=== PATIENT | male | born 1990 | race African-American/Black ===

== ENCOUNTER 2025-06-15 09:13 | Inpatient (IN) | payer MEDICAID, OTHER ==
[~2025-06-15] VITALS: Ht 185.4 cm; Wt 100.1 kg
--- NOTE | 2025-06-15 09:53 | ED.PDOC ---
GI ASSESSMENT HPI Comments HPI: 35 y/o M, with no prior medical history presents to the ED for CC of abdominal pain. Patient states, he has been experiencing symptoms of epigastric abdominal pain with associated urinary symptoms including "dark" colored urine and pain with urination x3days. Patient denies any back pain, flank pain, fever, chills, or penile discharge. No other symptoms or modifying factors are present at this time. REVIEW OF SYSTEMS: CONSTITUTIONAL: Denies acute: fever, diaphoresis, chills, HEAD: Denies acute: headache, photophobia Eyes: Denies acute: Double vision, vision loss, eye pain, eye discharge. EARS: Denies acute: tinnitus, hearing loss, ear discharge, ear pain, THROAT: Denies acute: sore throat, swelling, difficulty swallowing , pain with swallowing, change in voice. NECK: Denies acute: neck pain, neck swelling, stiff neck. HEART: Denies acute : chest pain, palpitations, LUNGS: Denies acute: SOB, wheezing, cough, hemoptysis ABDOMEN: Denies acute: Nausea, Vomiting, diarrhea, melena , hematemesis, hematochezia SKIN: Denies acute: rash, redness, lesions, itchiness. EXTREMITIES: Denies acute: calf pain, numbness, tingling, weakness, denies pain in extremity. Denies acute: Low back pain. Neuro: Denies acute: focal neurological deficit, motor or sensory focal neurological deficit, tremors, seizure like activity, confusion, dizziness, change in mental status, loss of bowel or bladder function, cauda equina like symptoms. : Denies acute: dysuria, hematuria, flank pain, increase in urinary frequency. PSYCH: Denies acute: hallucination, suicidal ideation, homicidal ideation. PHYSICAL EXAM: General: ----no----acute distress, awake and alert. Head: normocephalic, atraumatic. Neck: supple, trachea is midline, no swelling. Throat: Normal phonation. Eyes:, no erythema, no purulent discharge, no proptosis, no icterus. Heart: regular rate, regular rhythm, no significant murmur appreciated. Lungs: no apparent respiratory distress, Able to speak in full sentences. No wheezing, no rhonchi, no crackles. No stridors Clear to auscultation bilaterally. Abdomen: Epigastric tender to palpation, non distended, soft, no guarding, no rebound, + bowel sounds. Neuro: Awake, Alert, oriented to name, self, situation, follows commands GCS=15. Speech is normal. Skin: no petechia, no purpura, no cyanosis, non-pale, not jaundice. Lower extremities: --no - Pitting edema no deformity, no focal swelling, no calf TTP. Makes eye contact. moves all four extremities. Face: no apparent facial droop. Ambulating in the ED independently. ED COURSE: DISCLAIMER: This medical document was created using an electronic medical record system with voice recognition software and computerized dictation system. Although this document has been carefully reviewed, there might still be some phonetic and typographical errors. Occasional wrong-word or "sound-alike" substitutions may have occurred due to the inherent limitations of voice recognition software. These areas are purely typographical due to imperfections of the software programs and do not reflect any compromise in the patient's medical care. Please read the chart carefully and recognize, using context, where these substitutions have occurred. Chief Complaint: Abdominal Pain Time Seen by MD: 09:52 Reviewed Notes: Nurses Notes, Medications, Allergies Allergies: Coded Allergies: NO KNOWN ALLERGIES (Unverified , 06/15/25) Information Source: Patient Mode of Arrival: Ambulatory Timing: Days Duration: Since onset Prehospital treatment: None Vomitus: None Stool: Normal Severity: Moderate Recent Hx of: None Pain Location: Epigastric Modifying Factors: Nothing Associated sign and symptoms: Abdominal Pain Was a procedure done? Was a procedure done?: No GI differential Dx Differential Diagnosis: Gastritis/PUD, Gastroenteritis, UTI, Urolithiasis, Electrolyte Imbalance, Food Poisoning, Bacterial, Viral, Other (DDX include but not limited to diverticulitis, colitis, gastroenteritis, acute abdomen, SBO, enteritis, constipation, volvulus, appendicitis, Gallbladder disease, choledoco lithiasis, ascending cholangitis, pancreatitis, intraAbdominal mass/neoplasm, hepatitis, UTI, pylonephritis, kidney stone, aneurysm, dissection, Inflammatory bowel disease, gastroparesis, ischemic bowel.) X-Ray, Labs, Meds, VS Vital Signs Date Time Temp Pulse Resp B/P (MAP) Pulse Ox O2 Delivery O2 Flow Rate FiO2 06/15/25 12:15 100.0 84 15 103/67 (79) 97 100.0 06/15/25 11:40 100.8 87 20 112/69 (83) 97 100.8 06/15/25 11:40 87 06/15/25 11:40 100.8 06/15/25 11:00 87 20 97 Room Air* 0 21 06/15/25 10:40 103.3 06/15/25 10:34 97 Room Air* 0 21 06/15/25 10:28 103.3 106 17 123/76 (92) 97 103.3 06/15/25 09:14 100.0 110 18 138/72 95 100.0 Lab Test 06/15/25 11:15 06/15/25 10:08 Range/Units White Blood Count 19.4 H 23.8 H 4.4-10.8 10^3/uL Red Blood Count 4.33 L 5.10 4.5-5.90 10^6/uL Hemoglobin 13.0 L 15.1 13.5-17.5 g/dL Hematocrit 38.1 #L 45.3 41.0-53.0 % Mean Corpuscular Volume 88.0 88.8 80.0-100.0 fL Mean Corpuscular Hemoglobin 30.0 29.7 28.0-32.0 pg Mean Corpuscular Hemoglobin Concent 34.1 33.4 32.0-36.0 g/dL Red Cell Distribution Width 11.5 L 11.9 11.8-14.3 % Platelet Count 273 258 140-450 10^3/uL Mean Platelet Volume 7.6 7.5 6.9-10.8 fL Neutrophils (%) (Auto) 90.4 H 90.9 H 37.0-80.0 % Lymphocytes (%) (Auto) 3.9 L 3.9 L 10.0-50.0 % Monocytes (%) (Auto) 5.4 4.8 0.0-12.0 % Eosinophils (%) (Auto) 0.0 0.0 0.0-7.0 % Basophils (%) (Auto) 0.3 0.4 0.0-2.0 % Neutrophils # (Auto) 17.5 H 21.7 H 1.6-8.6 10 ^3/uL Lymphocytes # (Auto) 0.8 0.9 0.4-5.4 10 ^3/uL Monocytes # (Auto) 1.1 1.1 0-1.3 10 ^3/uL Eosinophils # (Auto) 0 0 0-0.8 10 ^3/uL Basophils # (Auto) 0.1 0.1 0-0.2 10 ^3/uL Nucleated Red Blood Cells 0.0 0.1 % Prothrombin Time 14.5 H 9.3-11.8 sec Prothrombin Time INR 1.42 H 0.9-1.15 Activated Partial Thromboplast Time 33.0 24.5-34.5 SEC Sodium Level 140 141 136-145 mmol/L Potassium Level 3.2 L 3.5 3.5-5.1 mmol/L Chloride Level 106 102 98-107 mmol/L Carbon Dioxide Level 22 24 20-31 mmol/L Anion Gap 12 15 5-15 Blood Urea Nitrogen 6 L 8 L 9-23 mg/dL Creatinine 0.96 1.14 0.700-1.30 mg/dL Glomerular Filtration Rate Calc 104 85 >90 mL/min BUN/Creatinine Ratio 6.3 L 7.0 L 10.0-20.0 Serum Glucose 112 H 114 H 74-106 mg/dL Calcium Level 8.8 9.7 8.7-10.4 mg/dL Total Bilirubin 2.4 H 2.8 H 0.2-1.0 mg/dL Aspartate Amino Transferase (AST) 20 25 13-40 U/L Alanine Aminotransferase (ALT) 16 22 7-40 U/L Alkaline Phosphatase 79 96 46-116 U/L Total Protein 7.4 8.2 5.7-8.2 g/dL Albumin 4.4 5.0 H 3.2-4.8 g/dL Platelet Estimate Adequate Clumped Platelets Few Red Blood Cell Morphology Normal Lactic Acid Level 2.3 *H 0.4-2.0 mmol/L Troponin I High Sensitivity < 3 L </=54 ng/L Lipase 28 12-53 U/L Current Medications Medications (Trade) Dose Ordered Sig/Velasquez Route Start Time Stop Time Status Last Admin Sodium Chloride 1,000 ml @ 1,000 mls/hr Q1H ONCE IV 06/15/25 09:45 06/15/25 10:44 DC 06/15/25 10:40 Ondansetron HCl (Zofran) 8 mg ONCE ONCE IV 06/15/25 09:45 06/15/25 09:46 DC 06/15/25 10:38 Acetaminophen (Tylenol Tablet) 650 mg ONCE ONCE PO 06/15/25 10:45 06/15/25 10:46 DC 06/15/25 10:40 Cefepime HCl 50 ml @ 12.5 mls/hr ONCE ONCE IV 06/15/25 11:45 06/15/25 15:44 DC 06/15/25 12:00 Lactated Ringer's 1,400 ml @ 1,000 mls/hr Q1H24M ONCE IV 06/15/25 11:30 06/15/25 12:55 DC 06/15/25 11:29 [place] [id number] Ph: [phone] DIAGNOSTIC IMAGING Diagnostic Imaging Report : [id number] Signed PATIENT: NICHOLE RAMOS JRACCT: [id number] UNIT: [id number] : 1990 LOC: ER ROOM / BED: / AGE / SEX: 35 / M ADM STATUS: REG ER SERVICE [id number] ORDERING PHYSICIAN: LIZZETTE CORDON DO PROCEDURE(s): ABPL - CT AB PEL WO CON-NO ORAL OR IV REASON: ABD PAIN N/V/D ORDER NUMBER(s): [id number], ACCESSION NUMBER(s): [id number] Exam: CT CT AB PEL WO CON-NO ORAL OR IV History: ABD PAIN N/V/D Comparison Study: None Technique: Multidetector spiral CT of the abdomen and pelvis was performed from lung bases to pubic symphysis. Imaging was performed without intravenous contra st. Coronal and sagittal multiplanar reformats were obtained from the axial data set by the technologist. Radiation Dose : 1. Abdomen/Pelvis: CTDIvol 14.13 mGy, DLP 723.4 mGy*cm. Findings: Evaluation of vasculature and solid organs is limited due to lack of intravenous contrast use. Lung Bases: Lung bases are clear. Visualized portions of the heart and pericardium are unremarkable. Liver: The liver is normal in size. No focal lesions. Gallbladder and Biliary Tree: Somewhat dense material in the gallbladder lumen may represent sludge versus small stones. No intrahepatic or extrahepatic biliary ductal dilatation. Spleen: Unremarkable Pancreas: The pancreas is grossly unremarkable. Adrenal Glands: Unremarkable Kidneys: Kidneys are unremarkable without calculi or hydronephrosis. GI tract: The stomach is grossly normal in appearance. No evidence of small bowel wall thickening or abnormal dilatation to suggest bowel obstruction. Liquid stool in the colon. The appendix is visualized and is normal. Peritoneum/mesentery/retroperitoneum. No evidence of free intraperitoneal air. No ascites. No evidence of suspicious lymphadenopathy. Abdominal Wall: Unremarkable. Vasculature: The visualized abdominal aorta is normal in size and caliber. Evaluation of abdominal and pelvic vessels is limited due to lack of intravenous contrast. Urinary Bladder: Grossly unremarkable for degree of distention. Pelvic Organs: Unremarkable Musculoskeletal: No aggressive focal bony lesions, acute fractures or dislocation. IMPRESSION: 1. Liquid stool in the colon suggesting diarrhea. No bowel obstruction. 2. Somewhat dense material in the gallbladder lumen may represent sludge versus small stones. ATED BY: RITA COE MD DICTATED DATE/TIME: 06/15/25 1015 SIGNED BY: RITA COE MD SIGNED DATE/TIME: 06/15/25 101 CC: Time of 1ST Reevaluation: 10:22 Reevaluation 1ST: Unchanged Patient Education/Counseling: Diagnosis, Treatment Family Education/Counseling: Other Comments MDM: patient presented with the above HPI.---abdominal pain/urinary symptom---workup was initiated. patient was found with the above mentioned diagnosis. the following medications were ordered: please refer to order lists of meds and tests obtained by myself Dr. Cordon. Patient ED course and VS have been stabilized. Patient has been reassessed in the ED and remained in a stable condition. Pertinent incidental findings were discussed with the patient and/or family. Patient/family voices understanding and is agreeable with plan. Patient has been observed in the ED adequate length of time to insure improvement/stability. Escalation of care considered: Consideration of escalation to observation or admission Sepsis bundle protocol was initiated with fluid resuscitation. Patient was ADMITTED to the medicine team for further evaluation and treatment of their presentation. All the reports of any imaging studies that were ordered by myself were reviewed by myself. SEPSIS Sepsis Screen Date sepsis recognized/suspect: Jun 15, 2025 Time Sepsis recognized/suspect: 0915 Recent Procedure: No On Antibiotic Therapy: No Respiratory Rate >20: No Heart Rate >90: Yes Temp<36 C (96.8 F) or >38.3 C: No SBP <90 or MAP <65 mmHG: No New Acute Mental Status Change: No Is the patient on CPAP, BIPAP,: No Physician Orders Bench Mechanic (06/15/25 ) Ct Ab Pel Wo Con-No Oral Or Iv (06/15/25 09:37) Clostridium Difficile Toxin (06/15/25 09:37) Ova & Parasite Exam (06/15/25 09:37) Stool Bacterial Culture (06/15/25 09:37) Stool Wbc (06/15/25 09:37) Chest Portable (06/15/25 10:52) Accucheck (06/15/25 10:52) Blood Culture (06/15/25 10:52) Notify Md If Map <65 Or Bp<90 (06/15/25 10:52) If Map<65 Start Vasopressor (06/15/25 10:52) Sepsis Reassesment After Fluid (06/15/25 11:52) Vital Signs Date Time Temp Pulse Resp B/P (MAP) Pulse Ox O2 Delivery O2 Flow Rate FiO2 06/15/25 12:15 100.0 84 15 103/67 (79) 97 100.0 06/15/25 11:40 100.8 87 20 112/69 (83) 97 100.8 06/15/25 11:40 87 06/15/25 11:40 100.8 06/15/25 11:00 87 20 97 Room Air* 0 21 06/15/25 10:40 103.3 06/15/25 10:34 97 Room Air* 0 21 06/15/25 10:28 103.3 106 17 123/76 (92) 97 103.3 06/15/25 09:14 100.0 110 18 138/72 95 100.0 Laboratory Tests Test 06/15/25 10:08 06/15/25 11:15 Lactic Acid Level 2.3 mmol/L (0.4-2.0) *H White Blood Count 23.8 10^3/uL (4.4-10.8) H 19.4 10^3/uL (4.4-10.8) H Medications Medications Dose Ordered Sig/Velasquez Route Start Time Stop Time Status Last Admin Dose Admin Acetaminophen 650 mg ONCE ONCE PO 06/15/25 10:45 06/15/25 10:46 DC 06/15/25 10:40 Cefepime HCl 50 ml @ 12.5 mls/hr ONCE ONCE IV 06/15/25 11:45 06/15/25 15:44 DC 06/15/25 12:00 Lactated Ringer's 1,400 ml @ 1,000 mls/hr Q1H24M ONCE IV 06/15/25 11:30 06/15/25 12:55 DC 06/15/25 11:29 Ondansetron HCl 8 mg ONCE ONCE IV 06/15/25 09:45 06/15/25 09:46 DC 06/15/25 10:38 Sodium Chloride 1,000 ml @ 1,000 mls/hr Q1H ONCE IV 06/15/25 09:45 06/15/25 10:44 DC 06/15/25 10:40 Departure 1 Departure Time of Disposition: 18:11 Impression: Primary Impression: Sepsis Additional Impressions: UTI (urinary tract infection) Leukocytosis Elevated lactic acid level Abdominal pain Disposition: ADMITTED INPATIENT Admit to: [facility] Condition: Guarded Discharged With: Self Critical Care Note Critical Care Time?: No I personally scribed for LIZZETTE CORDON DO ([email or web address]) on 06/15/25 at 09:53. Electronically submitted by Molly Rubio ([email or web address]). I personally scribed for LIZZETTE CORDON DO ([email or web address]) on 06/15/25 at 11:16. Electronically submitted by Molly Rubio ([email or web address]). I personally scribed for LIZZETTE CORDON DO ([email or web address]) on 06/15/25 at 11:16. Elec tronically submitted by Molly Rubio ([email or web address]). I personally scribed for LIZZETTE CORDON DO ([email or web address]) on 06/15/25 at 11:17. Electronically submitted by Molly Rubio ([email or web address]). LIZZETTE CORDON DO Jun 15, 2025 09:53
--- NOTE | 2025-06-15 10:17 | DVH ---
Exam: CT CT AB PEL WO CON-NO ORAL OR IV History: ABD PAIN N/V/D Comparison Study: None Technique: Multidetector spiral CT of the abdomen and pelvis was performed from lung bases to pubic s ymphysis. Imaging was performed without intravenous contrast. Coronal and sagittal multiplanar reform ats were obtained from the axial data set by the technologist. Radiation Dose : 1. Abdomen/Pelvis: CTDIvol 14.13 mGy, DLP 723.4 mGy*cm. Findings: Evaluation of vasculature and solid organs is limited due to lack of intravenous contrast use. Lung Bases: Lung bases are clear. Visualized portions of the heart and pericardium are unremarkable. Liver: The liver is normal in size. No focal lesions. Gallbladder and Biliary Tree: Somewhat dense material in the gallbladder lumen may represent sludge v ersus small stones. No intrahepatic or extrahepatic biliary ductal dilatation. Spleen: Unremarkable Pancreas: The pancreas is grossly unremarkable. Adrenal Glands: Unremarkable Kidneys: Kidneys are unremarkable without calculi or hydronephrosis. GI tract: The stomach is grossly normal in appearance. No evidence of small bowel wall thickening or abnormal dilatation to suggest bowel obstruction. Liquid stool in the colon. The appendix is visualiz ed and is normal. Peritoneum/mesentery/retroperitoneum. No evidence of free intraperitoneal air. No ascites. No evidenc e of suspicious lymphadenopathy. Abdominal Wall: Unremarkable. Vasculature: The visualized abdominal aorta is normal in size and caliber. Evaluation of abdominal a nd pelvic vessels is limited due to lack of intravenous contrast. Urinary Bladder: Grossly unremarkable for degree of distention. Pelvic Organs: Unremarkable Musculoskeletal: No aggressive focal bony lesions, acute fractures or dislocation. IMPRESSION: 1. Liquid stool in the colon suggesting diarrhea. No bowel obstruction. 2. Somewhat dense material in the gallbladder lumen may represent sludge versus small stones.
[2025-06-15 10:37] LABS: Hematocrit 45.3 % (41.0-53.0); Hemoglobin 15.1 g/dL (13.5-17.5); Mean Corpuscular Hemoglobin 29.7 pg (28.0-32.0); Mean Corpuscular Volume 88.8 fL (80.0-100.0); Nucleated Red Blood Cells % 0.1 %
[2025-06-15] MEDS: ONDANSETRON HCL 4 MG/2 ML VIAL IV ONE (10:38)
[2025-06-15] MEDS: ACETAMINOPHEN 325 MG TAB PO ONE (10:40)
[2025-06-15] MEDS: SODIUM CHLORIDE 0.9% 1,000 ML IV ONE (10:40)
[2025-06-15 10:45] LABS: Alanine Aminotransferase 22 U/L (7-40); Alkaline Phosphatase 96 U/L (46-116); Anion Gap 15 (5-15); BUN/Creatinine Ratio 7.0 (10.0-20.0); Calcium 9.7 mg/dL (8.7-10.4); Carbon Dioxide 24 mmol/L (20-31); Chloride 102 mmol/L (98-107); Sodium 141 mmol/L (136-145)
[2025-06-15 10:46] LABS: Albumin 5.0 g/dL (3.2-4.8); Bilirubin, Total 2.8 mg/dL (0.2-1.0); Blood Urea Nitrogen 8 mg/dL (9-23); Glucose 114 mg/dL (74-106); Potassium 3.5 mmol/L (3.5-5.1); Total Protein 8.2 g/dL (5.7-8.2)
[2025-06-15 10:47] LABS: Lactic Acid w/Reflex 2.3 mmol/L (0.4-2.0)
[2025-06-15 10:50] LABS: RBC Morphology Normal
[2025-06-15 10:51] LABS: Lipase 28 U/L (12-53)
[2025-06-15 11:00] VITALS: PULSE 87; RESP 20; O2SAT 97
[2025-06-15] MEDS ORDERED: LACTATED RINGER'S 2,400 ML IV ONE (11:00)
[2025-06-15 11:51] LABS: Hematocrit 38.1 % (41.0-53.0); Hemoglobin 13.0 g/dL (13.5-17.5); Mean Corpuscular Hemoglobin 30.0 pg (28.0-32.0); Mean Corpuscular Volume 88.0 fL (80.0-100.0); Nucleated Red Blood Cells % 0.0 %
--- NOTE | 2025-06-15 11:53 | DVH ---
CHEST RADIOGRAPH Indication: SEPSIS Technique: Single frontal view of the chest was obtained Comparison: None FINDINGS: Lines and Tubes: None Lungs: No focal consolidation. Pleura: No effusion. No pneumothorax. Cardiomediastinal contours: Unremarkable Bones: No acute osseous abnormality. IMPRESSION: 1. No acute cardiopulmonary disease. HS:Y
[2025-06-15] MEDS: CEFEPIME 1GM/50ML 50 ML IV ONE (12:00)
[2025-06-15 12:08] LABS: Alanine Aminotransferase 16 U/L (7-40); Albumin 4.4 g/dL (3.2-4.8); Alkaline Phosphatase 79 U/L (46-116); Anion Gap 12 (5-15); BUN/Creatinine Ratio 6.3 (10.0-20.0); Calcium 8.8 mg/dL (8.7-10.4); Carbon Dioxide 22 mmol/L (20-31); Chloride 106 mmol/L (98-107); Sodium 140 mmol/L (136-145); Total Protein 7.4 g/dL (5.7-8.2)
[2025-06-15 12:09] LABS: Bilirubin, Total 2.4 mg/dL (0.2-1.0); Blood Urea Nitrogen 6 mg/dL (9-23); Glucose 112 mg/dL (74-106); Potassium 3.2 mmol/L (3.5-5.1)
[2025-06-15 12:27] LABS: INR 1.42 (0.9-1.15); Partial Thromboplastin Time 33.0 SEC (24.5-34.5); Prothrombin Time 14.5 sec (9.3-11.8)
--- NOTE | 2025-06-15 12:28 | DVHHP2 ---
History of Present Illness Reason for Visit: Abdominal pain with dysuria History of Present Illness Sahil Restrepo JR is a 35-year-old male with past medical history of Hodgkin's lymphoma diagnosed in 2012 on chemo at [facility] who reports to the ED with abdominal pain with shortness of breath, dark colored urine, and abdominal pain when voiding x4 days. Patient also reports that he has been having loose green stool for the last 3 days. Patient reports that he was feverish and had chills last night. He states he does not know what his temperature was because he did not take it. He reports that he ate boiled potatoes. Patient states that there are no triggering or alleviating factors. Patient's girlfriend Linda at bedside. Patient denies any recent trauma or injury, recent sick contacts, recent danae stion of spoiled food, recent travels, chest pain, or shortness of breath. Patient also reports that he quit drinking 3 months ago and was drinking occasionally. Past Medical History Hodgkin's lymphoma Past Surgical History: None Family History: Other (Mom with blood clot.) Smoke: No ALCOHOL: none (Quit) Drugs: None Lives: with Family Domestic Violence: Neg Review of Systems Respiratory: Shortness of breath Gastrointestinal: Abdominal Pain Genitourinary: Dysuria Allergies: Coded Allergies: NO KNOWN ALLERGIES (Unverified , 06/15/25) Exam Vital Signs Vital Signs Date Time Temp Pulse Resp B/P (MAP) Pulse Ox O2 Delivery O2 Flow Rate FiO2 06/15/25 11:40 100.8 87 20 112/69 (83) 97 100.8 06/15/25 11:00 Room Air* 0 21 General Appearance: Alert, Oriented X3, Cooperative, No acute distress HEENT: Atraumatic, PERRLA, EOMI, Mucous membr. moist/pink Respiratory: Normal air movement Cardiovascular: Normal S1, Normal S2 Abdominal: Normal bowel sounds, Soft Extremities: No clubbing, No cyanosis, No edema, Normal pulses Skin: No significant lesion Neuro: Normal speech, Strength at 5/5 X4 ext, Normal tone, Sensation intact Psych/Mental Status: Mental status NL, Mood NL Labs/Xrays Labs Test 06/15/25 11:15 06/15/25 10:08 Range/Units White Blood Count 19.4 H 4.4-10.8 10^3/uL Red Blood Count 4.33 L 4.5-5.90 10^6/uL Hemoglobin 13.0 L 13.5-17.5 g/dL Hematocrit 38.1 #L 41.0-53.0 % Mean Corpuscular Volume 88.0 80.0-100.0 fL Mean Corpuscular Hemoglobin 30.0 28.0-32.0 pg Mean Corpuscular Hemoglobin Concent 34.1 32.0-36.0 g/dL Red Cell Distribution Width 11.5 L 11.8-14.3 % Platelet Count 273 140-450 10^3/uL Mean Platelet Volume 7.6 6.9-10.8 fL Neutrophils (%) (Auto) 90.4 H 37.0-80.0 % Lymphocytes (%) (Auto) 3.9 L 10.0-50.0 % Monocytes (%) (Auto) 5.4 0.0-12.0 % Eosinophils (%) (Auto) 0.0 0.0-7.0 % Basophils (%) (Auto) 0.3 0.0-2.0 % Neutrophils # (Auto) 17.5 H 1.6-8.6 10 ^3/uL Lymphocytes # (Auto) 0.8 0.4-5.4 10 ^3/uL Monocytes # (Auto) 1.1 0-1.3 10 ^3/uL Eosinophils # (Auto) 0 0-0.8 10 ^3/uL Basophils # (Auto) 0.1 0-0.2 10 ^3/uL Nucleated Red Blood Cells 0.0 % Sodium Level 140 136-145 mmol/L Potassium Level 3.2 L 3.5-5.1 mmol/L Chloride Level 106 98-107 mmol/L Carbon Dioxide Level 22 20-31 mmol/L Anion Gap 12 5-15 Blood Urea Nitrogen 6 L 9-23 mg/dL Creatinine 0.96 0.700-1.30 mg/dL Glomerular Filtration Rate Calc 104 >90 mL/min BUN/Creatinine Ratio 6.3 L 10.0-20.0 Serum Glucose 112 H 74-106 mg/dL Calcium Level 8.8 8.7-10.4 mg/dL Total Bilirubin 2.4 H 0.2-1.0 mg/dL Aspartate Amino Transferase (AST) 20 13-40 U/L Alanine Aminotransferase (ALT) 16 7-40 U/L Alkaline Phosphatase 79 46-116 U/L Total Protein 7.4 5.7-8.2 g/dL Albumin 4.4 3.2-4.8 g/dL Platelet Estimate Adequate Clumped Platelets Few Red Blood Cell Morphology Normal Lactic Acid Level 2.3 *H 0.4-2.0 mmol/L Troponin I High Sensitivity < 3 L </=54 ng/L Lipase 28 12-53 U/L CHEST RADIOGRAPH Indication: SEPSIS Technique: Single frontal view of the chest was obtained Comparison: None FINDINGS: Lines and Tubes: None Lungs: No focal consolidation. Pleura: No effusion. No pneumothorax. Cardiomediastinal contours: Unremarkable Bones: No acute osseous abnormality. IMPRESSION: 1. No acute cardiopulmonary disease. Exam: CT CT AB PEL WO CON-NO ORAL OR IV History: ABD PAIN N/V/D Comparison Study: None Technique: Multidetector spiral CT of the abdomen and pelvis was performed from lung bases to pubic symphysis. Imaging was performed without intravenous contrast. Coronal and sagittal multiplanar reformats were obtained from the ax ial data set by the technologist. Radiation Dose : 1. Abdomen/Pelvis: CTDIvol 14.13 mGy, DLP 723.4 mGy*cm. Findings: Evaluation of vasculature and solid organs is limited due to lack of intravenous contrast use. Lung Bases: Lung bases are clear. Visualized portions of the heart and pericardium are unremarkable. Liver: The liver is normal in size. No focal lesions. Gallbladder and Biliary Tree: Somewhat dense material in the gallbladder lumen may represent sludge versus small stones. No intrahepatic or extrahepatic biliary ductal dilatation. Spleen: Unremarkable Pancreas: The pancreas is grossly unremarkable. Adrenal Glands: Unremarkable Kidneys: Kidneys are unremarkable without calculi or hydronephrosis. GI tract: The stomach is grossly normal in appearance. No evidence of small bowel wall thickening or abnormal dilatation to suggest bowel obstruction. Liquid stool in the colon. The appendix is visualized and is normal. Peritoneum/mesentery/retroperitoneum. No evidence of free intraperitoneal air. No ascites. No evidence of suspicious lymphadenopathy. Abdominal Wall: Unremarkable. Vasculature: The visualized abdominal aorta is normal in size and caliber. Evaluation of abdominal and pelvic vessels is limited due to lack of intravenous contrast. Urinary Bladder: Grossly unremarkable for degree of distention. Pelvic Organs: Unremarkable Musculoskeletal: No aggressive focal bony lesions, acute fractures or dislocation. IMPRESSION: 1. Liquid stool in the colon suggesting diarrhea. No bowel obstruction. 2. Somewhat dense material in the gallbladder lumen may represent sludge versus small stones. SEPSIS Sepsis Screen Date sepsis recognized/suspect: Jun 15, 2025 Time Sepsis recognized/suspect: 1053 Recent Procedure: No On Antibiotic Therapy: No Respiratory Rate >20: Yes Heart Rate >90: Yes Temp<36 C (96.8 F) or >38.3 C: Yes SBP <90 or MAP <65 mmHG: No New Acute Mental Status Change: No Is the patient on CPAP, BIPAP,: No Physician Orders Outcomes Manager (06/15/25 ) Urinalysis (06/15/25 09:37) Ct Ab Pel Wo Con-No Oral Or Iv (06/15/25 09:37) Clostridium Difficile Toxin (06/15/25 09:37) Ova & Parasite Exam (06/15/25 09:37) Stool Bacterial Culture (06/15/25 09:37) Stool Wbc (06/15/25 09:37) Lactic Acid W/ Reflex Order (06/15/25 10:32) PTPTT (06/15/25 10:52) Chest Portable (06/15/25 10:52) Accucheck (06/15/25 10:52) Blood Culture (06/15/25 10:52) Notify Md If Map <65 Or Bp<90 (06/15/25 10:52) If Map<65 Start Vasopressor (06/15/25 10:52) Sepsis Reassesment After Fluid (06/15/25 11:52) Cefepime 1gm/50ml (Maxipime 1gm/50ml) (06/15/25 11:45) Lactated Ringer's (06/15/25 11:30) Vital Signs Date Time Temp Pulse Resp B/P (MAP) Pulse Ox O2 Delivery O2 Flow Rate FiO2 06/15/25 11:40 100.8 87 20 112/69 (83) 97 100.8 06/15/25 11:40 100.8 06/15/25 11:00 87 20 97 Room Air* 0 21 06/15/25 10:40 103.3 06/15/25 10:34 97 Room Air* 0 21 06/15/25 10:28 103.3 106 17 123/76 (92) 97 103.3 06/15/25 09:14 100.0 110 18 138/72 95 100.0 Laboratory Tests Test 06/15/25 10:08 06/15/25 11:15 Lactic Acid Level 2.3 mmol/L (0.4-2.0) *H White Blood Count 23.8 10^3/uL (4.4-10.8) H 19.4 10^3/uL (4.4-10.8) H Medications Medications Dose Ordered Sig/Velasquez Route Start Time Stop Time Status Last Admin Dose Admin Acetaminophen 650 mg ONCE ONCE PO 06/15/25 10:45 06/15/25 10:46 DC 06/15/25 10:40 650 MG Cefepime HCl 50 ml @ 12.5 mls/hr ONCE ONCE IV 06/15/25 11:45 06/15/25 15:44 06/15/25 12:00 12.5 MLS/HR Lactated Ringer's 1,400 ml @ 1,000 mls/hr Q1H24M ONCE IV 06/15/25 11:30 06/15/25 12:53 06/15/25 11:29 1,000 MLS/HR Ondansetron HCl 8 mg ONCE ONCE IV 06/15/25 09:45 06/15/25 09:46 DC 06/15/25 10:38 8 MG Sodium Chloride 1,000 ml @ 1,000 mls/hr Q1H ONCE IV 06/15/25 09:45 06/15/25 10:44 DC 06/15/25 10:40 1,000 MLS/HR Assessment/Plan Assessment/Plan Assessment Intractable abdominal pain Lactic acidosis likely due to sepsis Pyrexia Hypokalemia Hyperbilirubinemia Intractable diarrhea UTI History of Hodgkin's lymphoma diagnosed in 2012 on chemo at [facility] History of alcohol use Plan Admit to [facility] IV antibiotics-Zosyn Cefepime given in ED LR 3.8 L given in ED NS 1 L given ED Antiemetics Pain management Antipyretics Blood cultures PT/PTT Lactic noted Stool WBC Ova and parasite C diff testing CT abdomen and pelvis noted UA Lipase Troponin noted UA UDS Urine culture Renal ultrasound ordered Diet No home medications reported DVT prophylaxis-SCDs PUD prophylaxis-PPIs Discussed plan of care with patient and nurse Counseled patient on continuance of cessation of alcohol use [id number] Preventive counseling healthy eating habits, physical activity, and regular checkups Plan discussed with: Patient Date of Service: Jun 15, 2025 Billing Provider: MICHELLE NEWMAN Common Visit Codes: [id number] INP/OBS CARE (HIGH) Secondary Visit Codes: [id number] COUNSELING IND MIHCELLE NEWMAN Jun 15, 2025 12:28
[2025-06-15] MEDS: PIPERACILLIN-TAZOB 3.375GM 100 ML IV SCH (12:30)
[2025-06-15] MEDS ORDERED: HYDROcodone-ACET 5/325MG TAB PO PRN (12:30)
[2025-06-15] MEDS ORDERED: ONDANSETRON HCL 4 MG/2 ML VIAL IV PRN (12:30)
[2025-06-15 12:40] LABS: Urine Protein, UAD 1+ (Negative)
[2025-06-15 12:42] LABS: Amphetamine Screen, Urine Neg (NEGATIVE); Barbiturate Scree,Urine Neg (NEGATIVE); Benzodiazephine Screen, Urine Neg (NEGATIVE); Cannabinoid Screen, Urine Neg (NEGATIVE); Cocaine Screen, Urine Neg (NEGATIVE); Opiate Scree,Urine Neg (NEGATIVE); Phencyclidine Screen, Urine Neg (NEGATIVE)
[2025-06-15] MEDS ORDERED: MORPHINE SULFATE 4 MG/ML SYR/VIAL IV PRN (13:00)
--- NOTE | 2025-06-15 13:25 | DVH ---
INDICATION: pain TECHNIQUE: Multiple real-time sonographic images of the abdomen were obtained. COMPARISON: None FINDINGS: The liver is homogenous in echogenicity. The liver measures 15cm. No intrahepatic biliary ductal dilatation is noted. The gallbladder wall measures 0.2 cm and is unremarkable. No gallstones or sludge is seen. The com mon duct measures 0.4 cm and is unremarkable. No pericholecystic fluid is noted. The right kidney measures 10.5cm. No hydronephrosis. The left kidney measures 11.5cm. No hydronephr osis. The spleen measures 10cm, within normal limits. The echogenicity is within normal limits. The pancreas is not well visualized due to obscuration from bowel gas. The visualized portions of the IVC and aorta are grossly unremarkable. IMPRESSION: Normal exam of the abdomen.
[2025-06-15] MEDS: POTASSIUM CHL 20 Meq TABLET PO ONE (13:52)
[2025-06-15] MEDS ORDERED: CEFEPIME 1GM/50ML 50 ML IV SCH (14:00)
[2025-06-15 19:40] VITALS: RESP 18; O2SAT 98
[2025-06-15 21:59] VITALS: BP 111/70; PULSE 78; RESP 18; TEMP 102.4; O2SAT 97
[2025-06-15] MEDS: ACETAMINOPHEN 325 MG TAB PO PRN (22:33)
[2025-06-15 22:35] VITALS: BP 111/70; PULSE 78; RESP 18; TEMP 102.4; O2SAT 96
[2025-06-16] VITALS (8 sets, daily range): BP systolic 111–142; BP diastolic 66–87; PULSE 73–90; RESP 16–18; TEMP 97.8–101.8; O2SAT 95–99
[2025-06-16 06:21] LABS: Hematocrit 42.6 % (41.0-53.0); Hemoglobin 14.4 g/dL (13.5-17.5); Mean Corpuscular Hemoglobin 30.9 pg (28.0-32.0); Mean Corpuscular Volume 91.6 fL (80.0-100.0); Nucleated Red Blood Cells % 0.1 %
[2025-06-16 06:29] LABS: Alanine Aminotransferase 25 U/L (7-40); Albumin 4.5 g/dL (3.2-4.8); Alkaline Phosphatase 90 U/L (46-116); Anion Gap 12 (5-15); BUN/Creatinine Ratio 8.2 (10.0-20.0); Carbon Dioxide 24 mmol/L (20-31); Chloride 104 mmol/L (98-107); Glucose 84 mg/dL (74-106); Potassium 3.6 mmol/L (3.5-5.1); Sodium 140 mmol/L (136-145); Total Protein 7.4 g/dL (5.7-8.2)
[2025-06-16 06:30] LABS: Bilirubin, Total 2.1 mg/dL (0.2-1.0); Blood Urea Nitrogen 8 mg/dL (9-23); Calcium 8.7 mg/dL (8.7-10.4)
[2025-06-16] MEDS: PANTOPRAZOLE 40 MG/10 ML VIAL INJ IV SCH (09:37)
[2025-06-16] MEDS: PIPERACILLIN-TAZOB 3.375GM 100 ML IV SCH (12:34)
--- NOTE | 2025-06-16 14:21 | DVHPN2 ---
Reviewed: Care Plan, H&P, Labs, Medications, Previous Orders, Radiology Changes from previous H/P or p: No Changes General: Per HPI Respiratory: Shortness of breath Gastrointestinal: Abdominal Pain Genitourinary: Dysuria Objective Vitals Vital Signs Date Time Temp Pulse Resp B/P (MAP) Pulse Ox O2 Delivery O2 Flow Rate FiO2 06/16/25 12:33 97.8 75 18 142/80 (100) 97 97.8 06/16/25 08:00 Room Air* 0 21 Intake/Output Intake and Output 06/16/25 06:59 Intake Total 2950 ml Output Total 500 ml Balance 2450 ml Intake Oral 500 ml IV Total 2450 ml Output Urine Total 500 ml General Appearance: Alert, Oriented X3, Cooperative Medications Current Medications Medications Dose Ordered Sig/Velasquez Route Start Time Stop Time Status Last Admin Dose Admin Acetaminophen/ Hydrocodone Bitart 1 tab Q4HP PRN PO 06/15/25 12:30 Ondansetron HCl 4 mg Q4HP PRN IV 06/15/25 12:30 Acetaminophen 650 mg Q6HP PRN PO 06/15/25 12:30 06/16/25 09:38 650 MG Morphine Sulfate 2 mg Q4HPRN PRN IV 06/15/25 13:00 Pantoprazole Sodium 40 mg DAILY IV 06/16/25 10:00 06/16/25 09:37 40 MG Piperacillin Sod/ Tazobactam Sod 100 ml @ 25 mls/hr Q6HR IV 06/16/25 12:00 06/16/25 12:34 25 MLS/HR Laboratory Results Laboratory Tests 06/16/25 05:55 Chemistry Test 06/16/25 05:55 Albumin 4.5 g/dL (3.2-4.8) Calcium Level 8.7 mg/dL (8.7-10.4) Total Protein 7.4 g/dL (5.7-8.2) LFT Test 06/16/25 05:55 Alanine Aminotransferase (ALT) 25 U/L (7-40) Alkaline Phosphatase 90 U/L (46-116) Aspartate Amino Transferase (AST) 28 U/L (13-40) Total Bilirubin 2.1 mg/dL (0.2-1.0) H Urinalysis Test 06/15/25 12:27 Urine Color Dark-yellow (Yellow) Urine Clarity Clear (Clear) Urine pH 6.0 (5.0-9.0) Urine Specific [place] 1.022 (1.001-1.035) Urine Protein 1+ (Negative) H Urine Ketones 1+ (Negative) H Urine Blood Trace /uL (Negative) H Urine Nitrite Negative (Negative) Urine Bilirubin 1+ (Negative) Urine Urobilinogen 12 mg/dL (Negative) H Urine Leukocyte Esterase 2+ /uL (Negative) Urine RBC 3 /hpf (0 - 3) Urine Microscopic WBC 57 /HPF (0-3) H Urine Squamous Epithelial Cells Few /hpf (<5) Urine Bacteria Few /hpf (None Seen) H Urine Glucose Normal mg/dL (Normal) Microbiology Microbiology Date/Time Source Procedure Growth Status 06/15/25 12:27 Voided Urine Urine Culture - Preliminary Resulted 06/15/25 11:15 Blood Blood Culture - Preliminary NO GROWTH AFTER 24 HOURS OF INCUBATION. Resulted Labs and/or images reviewed: Labs reviewed by me, Image(s) reviewed by me Assessment/Plan Assessment/Plan Sahil Restrepo Ted PRICE is a 35-year-old male with past medical history of Hodgkin's lymphoma diagnosed in 2012 on chemo at [facility] who reports to the ED with abdominal pain with shortness of breath, dark colored urine, and abdominal pain when voiding x4 days. Patient also reports that he has been having loose green stool for the last 3 days. Patient reports that he was feverish and had chills last night. He states he does not know what his temperature was because he did not take it. He reports that he ate boiled potatoes. Patient states that there are no triggering or alleviating factors. Patient's girlfriend Linda at bedside. Patient denies any recent trauma or injury, recent sick contacts, recent ingestion of spoiled food, recent travels, chest pain, or shortness of breath. Patient also reports that he quit drinking 3 months ago and was drinking occasionally. Intractable abdominal pain Lactic acidosis likely due to sepsis Pyrexia Hypokalemia Hyperbilirubinemia Intractable diarrhea UTI History of Hodgkin's lymphoma diagnosed in 2012 on chemo at [facility] History of alcohol use Plan Admit to [facility] IV antibiotics-Zosyn Cefepime given in ED LR 3.8 L given in ED NS 1 L given ED Antiemetics Pain management Antipyretics Blood cultures PT/PTT Lactic noted Stool WBC Ova and parasite C diff testing CT abdomen and pelvis noted UA Lipase Troponin noted UA UDS Urine culture Renal ultrasound ordered Diet No home medications reported DVT prophylaxis-SCDs PUD prophylaxis-PPIs Discussed plan of care with patient and nurse Counseled patient on continuance of cessation of alcohol use [id number] Preventive counseling healthy eating habits, physical activity, and regular checkups Plan discussed with: Patient Plan discussed with: Patient Date of Service: Jun 16, 2025 Billing Provider: KARAN DIGGS DO Common Visit Codes: [id number] INP/OBS CARE(HIGH) KARAN DIGGS DO Jun 16, 2025 14:21
[2025-06-17] VITALS (8 sets, daily range): BP systolic 99–132; BP diastolic 59–89; PULSE 71–89; RESP 12–18; TEMP 97.8–99.4; O2SAT 96–99
[2025-06-17 14:34] LABS: Hematocrit 41.3 % (41.0-53.0); Hemoglobin 13.7 g/dL (13.5-17.5); Mean Corpuscular Hemoglobin 29.6 pg (28.0-32.0); Mean Corpuscular Volume 89.4 fL (80.0-100.0); Nucleated Red Blood Cells % 0.1 %
[2025-06-17 14:49] LABS: RBC Morphology Normal
[2025-06-18 01:00] VITALS: BP 116/75; PULSE 69; RESP 14; TEMP 98.2; O2SAT 95
[2025-06-18 05:00] VITALS: BP 125/82; PULSE 61; RESP 12; TEMP 97.2; O2SAT 98
[2025-06-18 08:00] VITALS: PULSE 64; RESP 18; O2SAT 100
[2025-06-18 08:30] VITALS: BP 142/78; PULSE 64; RESP 18; TEMP 98.6; O2SAT 100
[2025-06-18 13:15] VITALS: BP 123/82; PULSE 74; RESP 19; TEMP 98.3; O2SAT 98
--- NOTE | 2025-06-18 15:10 | DVHPN2 ---
Reviewed: Care Plan, H&P, Labs, Medications, Previous Orders, Radiology Changes from previous H/P or p: No Changes General: Per HPI Respiratory: Shortness of breath Gastrointestinal: Abdominal Pain Genitourinary: Dysuria Objective Vitals Vital Signs Date Time Temp Pulse Resp B/P (MAP) Pulse Ox O2 Delivery O2 Flow Rate FiO2 06/18/25 13:15 98.3 74 19 123/82 (96) 98 98.3 06/18/25 08:00 Room Air* 0 21 Intake/Output Intake and Output 06/18/25 07:00 Intake Total 1500 ml Balance 1500 ml Intake Oral 1200 ml IV Total 300 ml # Voids 7 General Appearance: Alert, Oriented X3, Cooperative Medications Current Medications Medications Dose Ordered Sig/Velasquez Route Start Time Stop Time Status Last Admin Dose Admin Acetaminophen/ Hydrocodone Bitart 1 tab Q4HP PRN PO 06/15/25 12:30 Ondansetron HCl 4 mg Q4HP PRN IV 06/15/25 12:30 Acetaminophen 650 mg Q6HP PRN PO 06/15/25 12:30 06/16/25 21:55 650 MG Morphine Sulfate 2 mg Q4HPRN PRN IV 06/15/25 13:00 Pantoprazole Sodium 40 mg DAILY IV 06/16/25 10:00 06/18/25 10:45 40 MG Piperacillin Sod/ Tazobactam Sod 100 ml @ 25 mls/hr Q6HR IV 06/16/25 12:00 06/18/25 12:00 25 MLS/HR Laboratory Results Laboratory Tests 06/16/25 05:55 06/17/25 14:14 Urinalysis Test 06/15/25 12:27 Urine Color Dark-yellow (Yellow) Urine Clarity Clear (Clear) Urine pH 6.0 (5.0-9.0) Urine Specific [place] 1.022 (1.001-1.035) Urine Protein 1+ (Negative) H Urine Ketones 1+ (Negative) H Urine Blood Trace /uL (Negative) H Urine Nitrite Negative (Negative) Urine Bilirubin 1+ (Negative) Urine Urobilinogen 12 mg/dL (Negative) H Urine Leukocyte Esterase 2+ /uL (Negative) Urine RBC 3 /hpf (0 - 3) Urine Microscopic WBC 57 /HPF (0-3) H Urine Squamous Epithelial Cells Few /hpf (<5) Urine Bacteria Few /hpf (None Seen) H Urine Glucose Normal mg/dL (Normal) Microbiology Microbiology Date/Time Source Procedure Growth Status 06/15/25 12:27 Voided Urine Urine Culture - Final Escherichia coli Complete 06/15/25 11:15 Blood Blood Culture - Preliminary NO GROWTH AFTER 72 HOURS OF INCUBATION. Resulted Assessment/Plan Assessment/Plan Sahil Restrepo JR is a 35-year-old male with past medical history of Hodgkin's lymphoma diagnosed in 2012 on chemo at [facility] who reports to the ED with abdominal pain with shortness of breath, dark colored urine, and abdominal pain when voiding x4 days. Patient also reports that he has been having loose green stool for the last 3 days. Patient reports that he was feverish and had chills last night. He states he does not know what his temperature was because he did not take it. He reports that he ate boiled potatoes. Patient states that there are no triggering or alleviating factors. Patient's girlfriend Linda at bedside. Patient denies any recent trauma or injury, recent sick contacts, recent ingestion of spoiled food, recent travels, chest pain, or shortness of breath. Patient also reports that he quit drinking 3 months ago and was drinking occasionally. Intractable abdominal pain Lactic acidosis likely due to sepsis Pyrexia Hypokalemia Hyperbilirubinemia Intractable diarrhea UTI History of Hodgkin's lymphoma diagnosed in [address] [facility] History of alcohol use 06/17/2025: symptoms improving Plan Admit to [facility] IV antibiotics-Zosyn Cefepime given in ED LR 3.8 L given in ED NS 1 L given ED Antiemetics Pain management Antipyretics Blood cultures PT/PTT Lactic noted Stool WBC Ova and parasite C diff testing CT abdomen and pelvis noted UA Lipase Troponin noted UA UDS Urine culture Renal ultrasound ordered Diet No home medications reported DVT prophylaxis-SCDs PUD prophylaxis-PPIs Discussed plan of care with patient and nurse Counseled patient on continuance of cessation of alcohol use [id number] Preventive counseling healthy eating habits, physical activity, and regular checkups Plan discussed with: Patient Plan discussed with: Patient Date of Service: Jun 17, 2025 Billing Provider: KARAN DIGGS DO Common Visit Codes: [id number] INP/OBS CARE(HIGH) KARAN DIGGS DO Jun 18, 2025 15:10
[2025-06-18] MEDS ORDERED: LEVO500T91 PO (15:16)
[2025-06-18 16:59] VITALS: BP 132/82; PULSE 74; RESP 19; TEMP 98.3; O2SAT 98
--- NOTE | 2025-06-19 16:47 | DVHDS2 ---
Discharge Summary Date of Admission Jun 15, 2025 at 12:20 Date of Discharge: Jun 18, 2025 Labs/Diagnostic Data: Laboratory Results Test 06/17/25 14:14 06/16/25 05:55 06/15/25 13:13 06/15/25 12:27 White Blood Count 6.7 10^3/uL (4.4-10.8) Red Blood Count 4.61 10^6/uL (4.5-5.90) Hemoglobin 13.7 g/dL (13.5-17.5) Hematocrit 41.3 % (41.0-53.0) Mean Corpuscular Volume 89.4 fL (80.0-100.0) Mean Corpuscular Hemoglobin 29.6 pg (28.0-32.0) Mean Corpuscular Hemoglobin Concent 33.1 g/dL (32.0-36.0) Red Cell Distribution Width 11.7 % (11.8-14.3) Platelet Count 246 10^3/uL (140-450) Mean Platelet Volume 7.7 fL (6.9-10.8) Neutrophils (%) (Auto) 71.6 % (37.0-80.0) Lymphocytes (%) (Auto) 16.2 % (10.0-50.0) Monocytes (%) (Auto) 11.2 % (0.0-12.0) Eosinophils (%) (Auto) 0.7 % (0.0-7.0) Basophils (%) (Auto) 0.3 % (0.0-2.0) Neutrophils # (Auto) 4.8 10 ^3/uL (1.6-8.6) Lymphocytes # (Auto) 1.1 10 ^3/uL (0.4-5.4) Monocytes # (Auto) 0.8 10 ^3/uL (0-1.3) Eosinophils # (Auto) 0 10 ^3/uL (0-0.8) Basophils # (Auto) 0 10 ^3/uL (0-0.2) Nucleated Red Blood Cells 0.1 % Platelet Estimate Adequate Clumped Platelets Few Red Blood Cell Morphology Normal Sodium Level 140 mmol/L (136-145) Potassium Level 3.6 mmol/L (3.5-5.1) Chloride Level 104 mmol/L (98-107) Carbon Dioxide Level 24 mmol/L (20-31) Anion Gap 12 (5-15) Blood Urea Nitrogen 8 mg/dL (9-23) Creatinine 0.97 mg/dL (0.700-1.30) Glomerular Filtration Rate Calc 103 mL/min (>90) BUN/Creatinine Ratio 8.2 (10.0-20.0) Serum Glucose 84 mg/dL (74-106) Calcium Level 8.7 mg/dL (8.7-10.4) Total Bilirubin 2.1 mg/dL (0.2-1.0) Aspartate Amino Transferase (AST) 28 U/L (13-40) Alanine Aminotransferase (ALT) 25 U/L (7-40) Alkaline Phosphatase 90 U/L (46-116) Total Protein 7.4 g/dL (5.7-8.2) Albumin 4.5 g/dL (3.2-4.8) Lactic Acid Level 1.7 mmol/L (0.4-2.0) Urine Color Dark-yellow (Yellow) Urine Clarity Clear (Clear) Urine pH 6.0 (5.0-9.0) Urine Specific [place] 1.022 (1.001-1.035) Urine Protein 1+ (Negative) Urine Ketones 1+ (Negative) Urine Blood Trace /uL (Negative) Urine Nitrite Negative (Negative) Urine Bilirubin 1+ (Negative) Urine Urobilinogen 12 mg/dL (Negative) Urine Leukocyte Esterase 2+ /uL (Negative) Urine RBC 3 /hpf (0 - 3) Urine Microscopic WBC 57 /HPF (0-3) Urine Squamous Epithelial Cells Few /hpf (<5) Urine Bacteria Few /hpf (None Seen) Urine Glucose Normal mg/dL (Normal) Urine Opiates Screen Neg (NEGATIVE) Urine Fentanyl Screen Neg (NEGATIVE) Urine Barbiturates Screen Neg (NEGATIVE) Urine Phencyclidine Screen Neg (NEGATIVE) Urine Amphetamines Screen Neg (NEGATIVE) Urine Benzodiazepines Screen Neg (NEGATIVE) Urine Cocaine Screen Neg (NEGATIVE) Urine Cannabinoids Screen Neg (NEGATIVE) Test 06/15/25 11:15 06/15/25 10:08 Prothrombin Time 14.5 sec (9.3-11.8) Prothrombin Time INR 1.42 (0.9-1.15) Activated Partial Thromboplast Time 33.0 SEC (24.5-34.5) Troponin I High Sensitivity < 3 ng/L (</=54) Lipase 28 U/L (12-53) Other Laboratory Tests 06/17/25 14:14 06/16/25 05:55 Brief Hx & Hospital Course: Sahil Restrepo JR is a 35-year-old male with past medical history of Hodgkin's lymphoma diagnosed in 2012 on chemo at [facility] who reports to the ED with abdominal pain with shortness of breath, dark colored urine, and abdominal pain when voiding x4 days. Patient also reports that he has been having loose green stool for the last 3 days. Patient reports that he was feverish and had chills last night. He states he does not know what his temperature was because he did not take it. He reports that he ate boiled potatoes. Patient states that there are no triggering or alleviating factors. Patient's girlfriend Linda at bedside. Patient denies any recent trauma or injury, recent sick contacts, recent ingestion of spoiled food, recent travels, chest pain, or shortness of breath. Patient also reports that he quit drinking 3 months ago and was drinking occasionally. Intractable abdominal pain Lactic acidosis likely due to sepsis Pyrexia Hypokalemia Hyperbilirubinemia Intractable diarrhea UTI History of Hodgkin's lymphoma diagnosed in 2012 on chemo at [facility] Counseled patient on continuance of cessation of alcohol use [id number] Preventive counseling healthy eating habits, physical activity, and regular checkups Plan discussed with: Patient Condition at Discharge: Fair Final Diagnosis/Problems List see above Discharge Disposition: Home Discharge Instruct/Medications Diet: Cardiac 2g Na,low cholest Activity: No Restrictions, As Tolerated Scheduled Levofloxacin Hemihydrate (Levofloxacin), 1 TAB PO DAILY Discharge Statement: "Patient was advised to return to the ER or call 911 if any headaches, dizziness, shortness of breath, chest pain, abdominal pain, bleeding, fevers, or worsening of medical condition. Patient was counseled about treatment plan, medications, possible side effects, patientverbalized understanding. All questions were answered to the best of my ability. This discharge took greater then 30 minutes in planning, reviewing documentation, counseling the patient, and discussing with other team members." ASSESSMENT ASSESSMENT Assessment Date of Service: Jun 18, 2025 Billing Provider: KARAN DIGGS DO Common Visit Codes: [id number] DISCH DAY >30min KARAN DIGGS DO Jun 19, 2025 16:47
== END 2025-06-18 19:17 | disposition home or self-care (01) | DRG 720 ==
LOC: ER 09:13 → OVERFLOW 12:20 → EEVIPCON 12:20 → EAST 21:37
PROVIDERS: ADMIT Internal Medicine; ATTEND Internal Medicine
DX: A41.9 Sepsis, unspecified organism (principal); E87.20 Acidosis, unspecified; E87.6 Hypokalemia; N39.0 Urinary tract infection, site not specified; E80.6 Other disorders of bilirubin metabolism; Z85.71 Personal history of Hodgkin lymphoma
CPT/HCPCS: 36415; 71045; 74176; 76700; 80053; 80307; 81001; 83605; 83690; 84484; 85025; 85610; 85730; 87040; 87086; 87088; 87186; 96361; 96365; 96366; G0378; J2405; J2470; J2543